=== PATIENT | female | born 1980 ===

== ENCOUNTER 2018-02-13 07:21 | Outpatient (CLI) | payer OTHER ==
[2018-02-13] MEDS ORDERED: ISOVUE-370 76%-LOCM 1 ML ONE (15:19)
== END 2018-02-13 07:22 | disposition home or self-care (01) ==
LOC: BICCT 07:21
PROVIDERS: ATTEND Family Medicine
DX: M54.5 Low back pain (principal)
CPT/HCPCS: 74177